=== PATIENT | male | born 1965 | race Caucasian/White ===

== ENCOUNTER 2019-11-13 10:46 | Emergency (ER) | payer OTHER, MEDICAID, SELFPAY ==
[2019-11-13 11:01] VITALS: BP 109/73; PULSE 69; RESP 16; O2SAT 97; BMI 23.5
--- NOTE | 2019-11-13 11:13 | DI.RAD.S_ITS ---
PROCEDURE: XR ANKLE RT MIN 3V INDICATIONS: R ankle and knee pain, planted foot and twisted TECHNIQUE: 3 views of the ankle were acquired. COMPARISON: [facility], CR, XR KNEE RT 3V, 11/13/2019, 11:39. FINDINGS: Bones: No displaced fractures or dislocations. Ankle mortise is normally aligned. No suspicious bony lesions. Soft tissues: No tibiotalar joint effusion. There may be mild soft tissue swelling about the lateral malleolus. IMPRESSION: No acute osseous abnormality of the right ankle. Dictated by: Frankie Velasquez M.D. on 11/13/2019 at 11:18 Approved by: Frankie Velasquez M.D. on 11/13/2019 at 11:21
--- NOTE | 2019-11-13 11:13 | DI.RAD.S_ITS ---
PROCEDURE: XR KNEE RT 3V INDICATIONS: R ankle and knee pain, planted foot and twisted TECHNIQUE: 3 views of the knee were acquired. COMPARISON: None. FINDINGS: Bones: No fractures or dislocations. No suspicious bony lesions. Soft tissues: Moderate joint effusion. No suspicious soft tissue calcifications. IMPRESSION: Moderate effusion. No visualized acute fracture or dislocation. However, if clinical concern and/or pain persist, short interval imaging followup in 7-10 days is recommended, as occult injury cannot be definitively excluded. Dictated by: Mikki Trejo M.D. on 11/13/2019 at 12:00 Approved by: Mikki Trejo M.D. on 11/13/2019 at 12:01
--- NOTE | 2019-11-13 11:43 | DI.RAD.S_ITS ---
PROCEDURE: XR FOOT RT MIN 3V INDICATIONS: trauma TECHNIQUE: 3 views of the foot were acquired. COMPARISON: [facility], , FOOT 3V LEFT, 11/17/2017, 13:05. FINDINGS: Bones: There is a nondisplaced fifth metatarsal base fracture. Soft tissues: No tibiotalar joint effusion. Achilles tendon appears normal. IMPRESSION: Nondisplaced fifth metatarsal base fracture. Dictated by: Mikki Trejo M.D. on 11/13/2019 at 11:59 Approved by: Mikki Trejo M.D. on 11/13/2019 at 12:00
[2019-11-13 13:00] VITALS: BP 117/78; PULSE 72; RESP 18; O2SAT 99
[2019-11-13] MEDS: IBUPROFEN 400 MG TABLET PO (14:23)
[2019-11-13 14:30] VITALS: BP 108/70; PULSE 60; RESP 17; O2SAT 100
[2019-11-13 15:00] VITALS: BP 125/79; PULSE 67; RESP 18; O2SAT 99
--- NOTE | 2019-11-13 15:32 | PC.NURSE ---
araceli wrap to rt knee.
--- NOTE | 2019-11-14 02:25 | ED_ITS ---
HPI - Extremity Injury (Lower) <KONSTANTIN Xiong - Last Filed: 11/14/19 02:39> General Chief Complaint: Extremity Injury, Lower Stated Complaint: twisted ankle, right foot, knee pain Time Seen by Provider: 11/13/19 11:12 Source: patient Mode of arrival: Wheelchair Limitations: no limitations History of Present Illness HPI Narrative: This is a 54-year-old male, nonsmoker, who presents to ED with chief complain of right lateral foot pain, lateral ankle pain, medial knee discomfort. Patient states he possibly inverted his right foot while trying to turn his body during ambulation yesterday with loud popping noise but did not seek evaluation until today since he lives in [facility]. Patient reports gradually worsening pain since the injury. Patient has history of meniscus surgery in right knee about 7 years ago. Patient reports swelling and discoloration on left lateral foot and ankle, increasing discomfort with weight bearing and movement on his right foot. Related Data Allergies Allergy/AdvReac Type Severity Reaction Status Date / Time No Known Drug Allergies Allergy Unknown Unverified 01/26/18 11:59 OPIOIDS AdvReac Unknown MAKES HIM Uncoded 01/26/18 11:59 FEEL BAD Review of Systems <KONSTANTIN Xiong - Last Filed: 11/14/19 02:39> Review of Systems Narrative: General: Denies fever, chills, fatigue, malaise, sweats. HEENT: Denies sinus pain, ear pain, sore throat, difficulty swallowing, dizziness. Respiratory: Denies dyspnea, cough, wheezing, hemoptysis, sputum. Cardiovascular: Denies chest pain, palpitations, orthopnea, edema. Gastrointestinal: Denies nausea, vomiting, abdominal pain, diarrhea, constipation, melena. : Denies dysuria, frequency, incontinence, hematuria, urinary retention. Musculoskeletal: See HPI Skin: Denies rash, skin lesions, or other. Neurologic: Denies weakness, headache, numbness, change in speech, confusion, seizures, incoordination. Psychiatric: No concerning psychosocial issues. 12-point review of systems is negative except for those stated above. Patient History <KONSTANTIN Xiong - Last Filed: 11/14/19 02:39> Social History Smoking Status: Never smoker Smoking Status: Never smoker Substance Use Type: does not use Exam <Jadiel Rodrigez-KONSTANTIN Gill - Last Filed: 11/14/19 02:39> Narrative Exam Narrative: General appearance: well developed, well nourished, in no acute distress. Head: normocephalic, atraumatic, no scalp lesions, non-tender. ENT: Hearing grossly intact. Nose without bleeding, purulent discharge, septal hematoma or deviation. Mucous membrane moist, no mucosal lesion. Throat without erythema, tonsillar hypertrophy or exudate. Uvula in midline, airway patent. Neck/Thyroid: neck supple, full range of motion, no visible masses or meningeal signs. No JVD, non-tender without lymphadenopathy. Skin: no suspicious rashes, lesions over visible areas. Warm and dry and appropriate color for ethnicity. Heart: no clubbing, no cyanosis, no edema. S1 and S2 normal. RRR w/o murmurs, clicks, or bruits. Lungs: Breathing even and unlabored. No stridor. No accessory muscles used. Able to speak in full sentences. Chest: normal shape and expansion. Abdomen: non-obese, non-distended. Neurologic: alert and oriented. Cognitive exam, [employer] and PNS grossly intact on informal exam. Psych: good eye contact, normal affect. Initial Vital Signs Initial Vital Signs: Vital Signs Pulse Rate 69 11/13/19 11:01 Respiratory Rate 16 11/13/19 11:01 Blood Pressure 109/73 11/13/19 11:01 Pulse Oximetry 97 11/13/19 11:01 Extrem Right lower extremity: knee Details: normal to inspection, tenderness Location: of the medial joint line, normal ROM and knee ligament exam normal; no swelling, no ecchymosis, no crepitus, no deformity and no unusual warmth, lower leg Details: normal to inspection; no tenderness, ankle Details: tenderness, swelling, normal ROM (But with discomfort) and ecchymosis (Mild lateral malleolar); no unusual warmth and foot Details: normal capillary refill, tenderness Location: of the dorsal foot, of the lateral foot and of the base of the 5th metatarsal, edema, ecchymosis (Dorsal aspect lateral metatarsal), vascular exam Details: dorsalis pedis pulse present and normal capillary refill, tendon exam Details: active flexion normal (But with discomfort) and active extension normal (But with discomfort) and motor-sensory exam Details: light- touch normal; no laceration and no crepitus <Ferny Harris MD - Last Filed: 11/15/19 21:21> Initial Vital Signs Initial Vital Signs: Vital Signs Pulse Rate 69 11/13/19 11:01 Respiratory Rate 16 11/13/19 11:01 Blood Pressure 109/73 11/13/19 11:01 Pulse Oximetry 97 11/13/19 11:01 Procedures <KONSTANTIN Xiong - Last Filed: 11/14/19 02:39> Orthopedic Splinting/Casting Injury #1: Side: right Lower Extremity Injury Location: foot Lower Extremity Immobilizer: posterior splint and Jay wrap (Knee) Other Orthopedic Equipment: crutches Post splinting neuro exam: intact Post splinting vascular exam: intact Placed by: Nursing Scores <KONSTANTIN Xiong - Last Filed: 11/14/19 02:39> GCS Radha coma scale eye opening: Spontaneous Radha coma scale verbal response: Orientated Radha coma scale motor response: Obey commands Radha coma scale total score: 15 Course <KONSTANTIN Xiong - Last Filed: 11/14/19 02:39> Orders Ordered: Discontinued Medications Acetaminophen (Tylenol) 650 mg PO NOW ONE Stop: 11/13/19 13:08 Last Admin: 11/13/19 14:26 Dose: Not Given Documented by: SALOME Ibuprofen (Advil) 400 mg PO NOW ONE Stop: 11/13/19 13:08 Last Admin: 11/13/19 14:23 Dose: 400 mg Documented by: SALOME <Ferny Harris MD - Last Filed: 11/15/19 21:21> Orders Ordered: Discontinued Medications Acetaminophen (Tylenol) 650 mg PO NOW ONE Stop: 11/13/19 13:08 Last Admin: 11/13/19 14:26 Dose: Not Given Documented by: SALOME Ibuprofen (Advil) 400 mg PO NOW ONE Stop: 11/13/19 13:08 Last Admin: 11/13/19 14:23 Dose: 400 mg Documented by: SALOME MDM - Extremity Injury (Lower) <KONSTANTIN Xiong - Last Filed: 11/14/19 02:39> Differential Diagnosis Differential diagnosis: Likely ankle sprain and strain, acute internal derangement of knee, ankle fracture and other (Foot fracture, foot sprain) Medical Records Attestation: I reviewed the patient's medical records. Imaging Data XR-Foot R: Radiologist's Impression: [address] [address] XRay Report Signed Patient: Silvino Mackey [facility]#: [id number] : 1965Acct:[id number] Age/Sex: 54 / MDate of Service: 11/13/19 Loc: ED Accession Number: [id number] Procedure: XR foot RT min 3V Ordering Provider: Ferny Harris MD PROCEDURE: XR FOOT RT MIN 3V INDICATIONS: trauma TECHNIQUE: 3 views of the foot were acquired. COMPARISON: [facility], FOOT 3V LEFT, 11/17/2017, 13:05. FINDINGS: Bones: There is a nondisplaced fifth metatarsal base fracture. Soft tissues: No tibiotalar joint effusion. Achilles tendon appears normal. IMPRESSION: Nondisplaced fifth metatarsal base fracture. Dictated by: Mikki Trejo M.D. on 11/13/2019 at 11:59 Approved by: Mikki Trejo M.D. on 11/13/2019 at 12:00 XR-Ankle R: Radiologist's Impression: [address] [address] XRay Report Signed Patient: Silvino Mackey [facility]#: [id number] : 1965Acct:[id number] Age/Sex: 54 / MDate of Service: 11/13/19 Loc: ED Accession Number: [id number] Procedure: XR ankle RT min 3V Ordering Provider: Jadiel Alfredo PROCEDURE: XR ANKLE RT MIN 3V INDICATIONS: R ankle and knee pain, planted foot and twisted TECHNIQUE: 3 views of the ankle were acquired. COMPARISON: [facility], XR KNEE RT 3V, 11/13/2019, 11:39. FINDINGS: Bones: No displaced fractures or dislocations. Ankle mortise is normally aligned. No suspicious bony lesions. Soft tissues: No tibiotalar joint effusion. There may be mild soft tissue swelling about the lateral malleolus. IMPRESSION: No acute osseous abnormality of the right ankle. Dictated by: Frankie Velasquez M.D. on 11/13/2019 at 11:18 Approved by: Frankie Velasquez M.D. on 11/13/2019 at 11:21 XR-Knee Rt: Radiologist's Impression: [address] [address] XRay Report Signed Patient: Silvino Mackey [facility]#: [id number] : 1965Acct:[id number] Age/Sex: 54 / MDate of Service: 11/13/19 Loc: ED Accession Number: [id number] Procedure: XR knee RT 3V Ordering Provider: Jadiel Alfredo PROCEDURE: XR KNEE RT 3V INDICATIONS: R ankle and knee pain, planted foot and twisted TECHNIQUE: 3 views of the knee were acquired. COMPARISON: None. FINDINGS: Bones: No fractures or dislocations. No suspicious bony lesions. Soft tissues: Moderate joint effusion. No suspicious soft tissue calcifications. IMPRESSION: Moderate effusion. No visualized acute fracture or dislocation. However, if clinical concern and/or pain persist, short interval imaging followup in 7-10 days is recommended, as occult injury cannot be definitively excluded. Dictated by: Mikki Trejo M.D. on 11/13/2019 at 12:00 Approved by: Mikki Trejo M.D. on 11/13/2019 at 12:01 [facility] Narrative Medical decision making narrative: X-ray test on right foot showed a nondisplaced 5th metatarsal base fracture with intact Achilles tendon. Right ankle and knee x-ray tests did not show acute findings such as fractures or dislocation. Joint effusion on right knee. Right lower limb sensation is intact, mild swelling and slight ecchymosis to right lateral metatarsal. Patient is able to move right ankle, toes but increased pain with weight-bearing or movements. Affected lower leg was splinted with Ortho Glass splint in posterior leg and crutches provided with teachings for nonweightbearing. Jay wrap was applied on right knee for comfort. Advised RICE therapy and to use [id number] Tylenol and or Motrin as needed for discomfort. [facility] contact number provided to follow up and return precautions were discussed with the patient. Patient verbalized the understanding and agrees with treatment plan. Discharge Plan Departure Patient Disposition: Home Clinical Impression: Ankle sprain and strain Right knee sprain Qualifiers: Encounter type: initial encounter Involved ligament of knee: medial collateral ligament Qualified Code(s): S83.411A - Sprain of medial collateral ligament of right knee, initial encounter Fracture of fifth metatarsal bone of right foot Qualifiers: Encounter type: initial encounter Fracture type: closed Fracture alignment: nondisplaced Qualified Code(s): S92.354A - Nondisplaced fracture of fifth metatarsal bone, right foot, initial encounter for closed fracture Discharge Date/Time: 11/13/19 16:03 Instructions: DI for Foot Fracture, DI for Knee Sprain, DI for Ankle Sprain Activity Restrictions/Additional Instructions: You have been diagnosed with [according to x-ray test today, nondisplaced 5th metatarsal base fracture, sprain on lateral ankle and medial knee]. What to do: *Take your medications as directed. Please take [id number] Tylenol and or Motrin as needed for discomfort. Tylenol 650 mg 4 times a day as needed and ibuprofen 400-600 mg 3 times a day with food. Please use RICE therapy with rest, ice for next 24-48 hrs, splint and elevation for pain and swelling. Please keep splint on all time and use crutches for nonweightbearing. Jay wrap on her knee for support *Follow up with your primary care provider/orthopedist in 2-3 days, call for an appointment. Let them know you were seen in the ED and that we asked you to be seen in follow up. *Return to ED if you have any new, worsening, or concerning symptoms, such as [increasing pain, fever, chest pain, breathing difficulty, tingling, numbness, weakness to affected limb or any acute concerns]. Referrals: [facility] [Provider Group] Jay Young ARNP [Primary Care Provider] -
== END 2019-11-13 16:03 | disposition home or self-care (01) ==
PROVIDERS: Emergency Provider Nurse Practitioner Family; Family Provider Registered Nurse; PCP Registered Nurse
DX: S93.401A Sprain of unspecified ligament of right ankle, initial encounter (principal); S96.911A Strain of unspecified muscle and tendon at ankle and foot level, right foot, initial encounter; S83.411A Sprain of medial collateral ligament of right knee, initial encounter; S92.354A Nondisplaced fracture of fifth metatarsal bone, right foot, initial encounter for closed fracture
CPT/HCPCS: 73562; 73610; 73630; 99283; 99284

== ENCOUNTER 2021-04-10 03:05 | Observation (INO) | payer OTHER, MEDICAID, SELFPAY ==
[2021-04-10] VITALS (27 sets, daily range): BP systolic 101–140; BP diastolic 69–86; PULSE 60–98; RESP 14–22; TEMP 35.7–37.2; O2SAT 90–100; BMI 25.0
--- NOTE | 2021-04-10 | DI.RAD.S_ITS ---
PROCEDURE: XR CHEST 1V INDICATIONS: NG TUBE PLACEMENT TECHNIQUE: One view of the chest was acquired. COMPARISON: None. FINDINGS: Surgical changes and devices: Tubing is noted overlying the region of the esophagus with distal tip extending below the left hemidiaphragm. Side port overlies the region of the gastroesophageal junction. Lungs and pleura: Visualized portions of the lung bases are clear. Mediastinum: Mediastinal contours appear normal. Heart size is normal. Bones and chest wall: No suspicious bony lesions. Overlying soft tissues appear unremarkable. IMPRESSION: NG tube projecting below the left hemidiaphragm as above. Given location of side port, approximately 3 cm advancement would improve placement. The above findings are concordant with preliminary report. Dictated by: Mikki Trejo M.D. on 04/10/2021 at 8:34 Approved by: Mikki Trejo M.D. on 04/10/2021 at 8:36
--- NOTE | 2021-04-10 03:22 | DI.CT.S_ITS ---
PROCEDURE: CT ABDOMEN PELVIS W CON INDICATIONS: abdominal pain TECHNIQUE: After the administration of intravenous contrast, axial sections acquired from the lung bases to the pubic symphysis. Coronal and sagittal reformats were performed. For radiation dose reduction, the following was used: automated exposure control, adjustment of mA and/or kV according to patient size. COMPARISON: None. FINDINGS: ABDOMEN: Lung bases: Dependent bilateral mild scattered atelectasis in the visualized lung bases. Heart: No significant findings. Liver: Within the left hepatic lobe, 12.1 cm partially enhancing lesion statistically represents hemangioma. This could be confirmed with ultrasound evaluation/surveillance. Small right hepatic cysts. Gallbladder: Negative Bile ducts: Normal. Pancreas: Normal. Spleen: Normal. Adrenals: Normal. Kidneys and Ureters: Normal. Stomach and duodenum: Distended stomach Bowel: Distended small bowel loops with scattered air-fluid levels. Distal small bowel loops remain decompressed. The colon is relatively decompressed. Incidentally noted scattered colonic diverticula. The rectum is unremarkable. Normal appendix. There is stool and gas within the rectal vault at this time. Other: No free fluid or air. Abdominal nodes: Normal. Aorta and IVC: Normal in size. Ventral wall: Small fat containing periumbilical hernia. PELVIS: Bladder: Normal. Inguinal region: No hernia. Pelvic nodes: Normal. Bones: Spondylytic changes and facet arthropathy. No vertebral body compression fracture. IMPRESSION: Small-bowel obstruction, including distended stomach and proximal/mid small bowel. Findings concordant with preliminary study interpretation. Additional chronic and incidental findings as above. Dictated by: Louis Segundo M.D. on 04/10/2021 at 7:51 Approved by: Louis Segundo M.D. on 04/10/2021 at 7:56
[2021-04-10 03:37] LABS: Add Manual Diff / Slide Review NO; Basophils Absolute Auto 0 /uL (0-100); Basophils Percent Auto 0.5 % (0-2); Eosinophils Absolute Auto 200 /uL (0-450); Eosinophils Percent Auto 1.9 % (2-4); Hematocrit 43.9 % (41-53); Hemoglobin 15.2 g/dL (13.5-17.5); Lymphocytes Absolute Auto 800 /uL (1100-4500); Lymphocytes Percent Auto 9.9 % (25-40); Mean Corpuscular HGB Conc 34.5 % (30-36); Mean Corpuscular Hemoglobin 31.5 PG (26-34); Mean Corpuscular Volume 91.2 fL (80-100); Monocytes Absolute Auto 800 /uL (0-900); Monocytes Percent Auto 9.2 % (3-14); Neutrophils Absolute Auto 6400 /uL (1500-7000); Neutrophils Percent Auto 78.5 % (50-75); Platelet Count 155 X10^3/uL (150-400); Red Blood Cell Count 4.81 X10^6/uL (4.5-5.9); White Blood Cell Count 8.1 X10^3/uL (4.5-11.0)
[2021-04-10] MEDS: SODIUM CHLORIDE 0.9% 1,000 ML 150 ML IV ×3 (03:37→21:17)
[2021-04-10] MEDS: ONDANSETRON 4 MG/2 ML INJ IV (03:37)
[2021-04-10] MEDS: HYDROMORPHONE 0.5 MG INJ IV ×6 (03:37→21:31)
[2021-04-10 03:50] LABS: Lactate (Lactic Acid) 0.9 mmol/L (0.7-2.1)
[2021-04-10 03:52] LABS: Alanine Aminotransferase 19 IU/L (<50); Albumin 4.2 g/dL (3.5-5.0); Albumin Globulin Ratio 1.6 (1.0-2.8); Alkaline Phosphatase 44 U/L (38-126); Aspartate Aminotransferase 51 IU/L (17-59); BUN Creatinine Ratio 19.5 (6-22); Bilirubin Total 0.6 mg/dL (0.2-1.3); Blood Urea Nitrogen 17 mg/dL (9-20); Calcium 10.4 mg/dL (8.4-10.2); Carbon Dioxide 26 mmol/L (22-32); Chloride 105 mmol/L (98-107); Estimated Glomerular Filt Rate > 60.0 mL/min (>60); Globulin 2.7 g/dL (1.7-4.1); Glucose 118 mg/dL (70-100); HEMOLYSIS 27 (0-50); Lipase 87 U/L (23-300); Magnesium 1.9 mg/dL (1.6-2.3); Potassium 3.4 mmol/L (3.4-5.1); Sodium 138 mmol/L (137-145); Total Protein 6.9 g/dL (6.3-8.2)
[2021-04-10 04:07] LABS: Troponin I < 0.012 ng/mL (0.01-0.034)
--- NOTE | 2021-04-10 04:49 | ED.ABDPAIN ---
HPI - Abdominal Pain <Merly Stringer MD - Last Filed: 04/11/21 05:19> General Chief Complaint: Abdominal Pain Stated Complaint: Diffuse Abd Pain Time Seen by Provider: 04/10/21 03:05 Source: patient and EMS Mode of arrival: EMS History of Present Illness HPI narrative: 55-year-old otherwise healthy gentleman who takes no prescription medications presents with the acute onset of abdominal pain starting about 130 this afternoon. He notes that over the years he has had some minor periumbilical pain that he always presumed was an umbilical hernia. Today he complains of increasing bloating and overall pain. Did try to go to bed but the pain awoke him from sleep with increased severity. The pain was severe enough that he was having near syncopal feelings. He notes that he had a small bowel movement this evening that did not influences pain. He describes the pain as waves of cramping severe pain over his lower abdomen going from right to left. He does not describe chest pain, orthopnea, dyspnea, fevers, cough, chills, dysuria. He has no flank pain. Related Data Home Medications Medication Instructions Recorded Confirmed No Known Home Medications 04/10/21 04/10/21 Allergies Allergy/AdvReac Type Severity Reaction Status Date / Time Opioids - Morphine Analogues AdvReac Unknown makes him Verified 04/10/21 11:36 feel bad Review of Systems <Merly Stringer MD - Last Filed: 04/11/21 05:19> Review of Systems Narrative: Remainder of complete review of systems is otherwise unremarkable except for that included in the HPI. Patient History <Merly Stringer MD - Last Filed: 04/11/21 05:19> Social History Smoking Status: Never smoker Smoking Status: Never smoker alcohol intake frequency: a few times a month Substance Use Type: does not use Exam <Merly Stringer MD - Last Filed: 04/11/21 05:19> Narrative Exam Narrative: General: Healthy appearing, in significant distress. Able to give a complete and coherent history. Well-nourished well-developed HEENT: Moist mucous membranes, normal sclera with reactive pupils, Neck: No JVD, supple Respiratory: Lungs are clear to auscultation, no wheezing no rales no rhonchi. Full and symmetrical air movement but 3-4 word sentences only secondary to pain Cardiac: Regular rate and rhythm no murmurs no bruits Abdomen: Guarding over the entire abdomen with significant tenderness and hypoactive bowel tones, mild rebound signs or developing, no flank pain Skin: Warm and dry, no rashes Neurologic: Grossly neurologically intact with no obvious asymmetries or abnormalities Extremities: No trauma, well perfused Psych: Cooperative, appropriate insight and affect Initial Vital Signs Initial Vital Signs: Vital Signs Temperature 98 F 04/10/21 03:00 Pulse Rate 66 04/10/21 03:00 Respiratory Rate 20 04/10/21 03:00 Blood Pressure 110/74 04/10/21 03:00 Pulse Oximetry 96 04/10/21 03:00 <Alana Shankar DO - Last Filed: 04/10/21 18:44> Initial Vital Signs Initial Vital Signs: Vital Signs Temperature 98 F 04/10/21 03:00 Pulse Rate 66 04/10/21 03:00 Respiratory Rate 20 04/10/21 03:00 Blood Pressure 110/74 04/10/21 03:00 Pulse Oximetry 96 04/10/21 03:00 Course <Merly Stringer MD - Last Filed: 04/11/21 05:19> Orders Ordered: Benzocaine (Benzocaine/Menthol 1 Afsaneh Pkt) 1 each PO Q1HR PRN PRN Reason: Sore Throat Benzocaine/Butamben/Tetracaine HCl (Tetracaine/Benzocaine/Butamben (Cetacaine) Bottle) 1 spray TOP PRN PRN PRN Reason: Sore Throat Cyclobenzaprine HCl (Cyclobenzaprine 10 Mg Tablet) 5 mg PO Q8HR PRN PRN Reason: Muscle Spasm Last Admin: 04/11/21 03:16 Dose: 5 mg Documented by: ISABEL Enoxaparin Sodium (Enoxaparin 40 Mg/0.4 Ml Syringe) 40 mg 0.5 mg/kg (40 mg) SUBCUT DAILY JASMINA Hydromorphone HCl (Hydromorphone 0.5 Mg Inj) 0.5 mg IV Q3H PRN PRN Reason: Pain, Moderate (4-6) Last Admin: 04/10/21 21:31 Dose: 0.5 mg Documented by: Admin: 04/10/21 18:21 Dose: 0.5 mg Documented by: Admin: 04/10/21 14:08 Dose: 0.5 mg Documented by: HUY Sodium Chloride (Normal Saline 0.9%) 1,000 mls @ 150 mls/hr IV CONT [facility] Last Admin: 04/11/21 04:00 Dose: 150 mls/hr Documented by: Infusion: 04/11/21 03:58 Dose: 150 mls/hr Documented by: Admin: 04/10/21 21:17 Dose: 150 mls/hr Documented by: Infusion: 04/10/21 20:51 Dose: 150 mls/hr Documented by: Admin: 04/10/21 14:10 Dose: 150 mls/hr Documented by: HUY Magnesium Oxide (Magnesium Oxide 400 Mg Tablet) 400 mg PO DAILY [facility] Last Admin: 04/11/21 00:11 Dose: 400 mg Documented by: ISABEL Ondansetron HCl (Ondansetron 4 Mg/2 Ml Inj) 4 mg IV Q4HR PRN PRN Reason: Nausea And Vomiting Pantoprazole Sodium (Pantoprazole 40 Mg Vial) 40 mg IV BID [facility] Last Admin: 04/10/21 21:17 Dose: 40 mg Documented by: Admin: 04/10/21 14:13 Dose: 40 mg Documented by: HUY Discontinued Medications Benzocaine/Butamben/Tetracaine HCl (Tetracaine/Benzocaine/Butamben (Cetacaine) Bottle) 1 spray TOP PRN PRN PRN Reason: Sore Throat Last Admin: 04/10/21 11:05 Dose: 1 spray Documented by: Admin: 04/10/21 08:25 Dose: 1 spray Documented by: PORSCHE Hydromorphone HCl (Hydromorphone 0.5 Mg Inj) 0.5 mg IV Q15MIN PRN PRN Reason: Pain, Last Admin: 04/10/21 11:04 Dose: 0.5 mg Documented by: Admin: 04/10/21 08:15 Dose: 0.5 mg Documented by: Admin: 04/10/21 03:37 Dose: 0.5 mg Documented by: SHALOM Hydromorphone HCl (Hydromorphone 1 Mg Inj) 1 mg IV NOW ONE Stop: 04/10/21 05:40 Last Admin: 04/10/21 05:49 Dose: 1 mg Documented by: SHALOM Sodium Chloride (Normal Saline 0.9%) 1,000 mls @ 150 mls/hr IV CONT JAS[facility]A Last Infusion: 04/10/21 05:50 Dose: 0 mls/hr Documented by: Admin: 04/10/21 03:37 Dose: 150 mls/hr Documented by: SHALOM Dextrose/Sodium Chloride (Dextrose 5%-0.9% Ns) 1,000 mls @ 125 mls/hr IV CONT J[facility] Last Admin: 04/10/21 11:40 Dose: Not Given Documented by: HUY Magnesium Oxide (Magnesium Oxide 400 Mg Tablet) 400 mg PO DAILY [facility] Ondansetron HCl (Ondansetron 4 Mg/2 Ml Inj) 4 mg IV NOW ONE Stop: 04/10/21 03:28 Last Admin: 04/10/21 03:37 Dose: 4 mg Documented by: SHALOM Vital Signs Vital signs: Vital Signs - 8 hr 04/10/21 03:00 04/10/21 03:29 04/10/21 03:30 Temperature 98 F Pulse Rate 66 68 62 Respiratory Rate 20 Blood Pressure 110/74 Pulse Oximetry 96 100 100 04/10/21 03:36 04/10/21 03:55 04/10/21 04:00 Temperature Pulse Rate 74 67 70 Respiratory Rate Blood Pressure 110/74 105/70 Pulse Oximetry 97 95 95 04/10/21 04:23 04/10/21 04:30 04/10/21 05:00 Temperature Pulse Rate 71 74 80 Respiratory Rate Blood Pressure 106/69 106/69 114/72 Pulse Oximetry 97 97 96 04/10/21 05:30 04/10/21 06:00 04/10/21 06:30 Temperature Pulse Rate 98 H 81 71 Respiratory Rate Blood Pressure 139/80 117/75 101/72 Pulse Oximetry 99 90 L 91 04/10/21 06:59 04/10/21 07:00 04/10/21 07:01 Temperature Pulse Rate 78 79 Respiratory Rate Blood Pressure 108/75 Pulse Oximetry 95 95 04/10/21 07:30 04/10/21 08:00 04/10/21 08:30 Temperature Pulse Rate 71 60 75 Respiratory Rate Blood Pressure 116/78 113/81 122/85 Pulse Oximetry 94 95 96 04/10/21 09:00 04/10/21 09:30 Temperature Pulse Rate 63 60 Respiratory Rate 22 Blood Pressure 122/74 122/77 Pulse Oximetry 95 95 <Alana Shankar DO - Last Filed: 04/10/21 18:44> Orders Ordered: Benzocaine (Benzocaine/Menthol 1 Afsaneh Pkt) 1 each PO Q1HR PRN PRN Reason: Sore Throat Benzocaine/Butamben/Tetracaine HCl (Tetracaine/Benzocaine/Butamben (Cetacaine) Bottle) 1 spray TOP PRN PRN PRN Reason: Sore Throat Cyclobenzaprine HCl (Cyclobenzaprine 10 Mg Tablet) 5 mg PO Q8HR PRN PRN Reason: Muscle Spasm Last Admin: 04/11/21 03:16 Dose: 5 mg Documented by: ISABEL Enoxaparin Sodium (Enoxaparin 40 Mg/0.4 Ml Syringe) 40 mg 0.5 mg/kg (40 mg) SUBCUT DAILY [facility] Hydromorphone HCl (Hydromorphone 0.5 Mg Inj) 0.5 mg IV Q3H PRN PRN Reason: Pain, Moderate (4-6) Last Admin: 04/10/21 21:31 Dose: 0.5 mg Documented by: Admin: 04/10/21 18:21 Dose: 0.5 mg Documented by: Admin: 04/10/21 14:08 Dose: 0.5 mg Documented by: HUY Sodium Chloride (Normal Saline 0.9%) 1,000 mls @ 150 mls/hr IV CONT [facility] Last Admin: 04/11/21 04:00 Dose: 150 mls/hr Documented by: Infusion: 04/11/21 03:58 Dose: 150 mls/hr Documented by: Admin: 04/10/21 21:17 Dose: 150 mls/hr Documented by: Infusion: 04/10/21 20:51 Dose: 150 mls/hr Documented by: Admin: 04/10/21 14:10 Dose: 150 mls/hr Documented by: HUY Magnesium Oxide (Magnesium Oxide 400 Mg Tablet) 400 mg PO DAILY [facility] Last Admin: 04/11/21 00:11 Dose: 400 mg Documented by: ISABEL Ondansetron HCl (Ondansetron 4 Mg/2 Ml Inj) 4 mg IV Q4HR PRN PRN Reason: Nausea And Vomiting Pantoprazole Sodium (Pantoprazole 40 Mg Vial) 40 mg IV BID [facility] Last Admin: 04/10/21 21:17 Dose: 40 mg Documented by: Admin: 04/10/21 14:13 Dose: 40 mg Documented by: HUY Discontinued Medications Benzocaine/Butamben/Tetracaine HCl (Tetracaine/Benzocaine/Butamben (Cetacaine) Bottle) 1 spray TOP PRN PRN PRN Reason: Sore Throat Last Admin: 04/10/21 11:05 Dose: 1 spray Documented by: Admin: 04/10/21 08:25 Dose: 1 spray Documented by: PORSCHE Hydromorphone HCl (Hydromorphone 0.5 Mg Inj) 0.5 mg IV Q15MIN PRN PRN Reason: Pain, Last Admin: 04/10/21 11:04 Dose: 0.5 mg Documented by: Admin: 04/10/21 08:15 Dose: 0.5 mg Documented by: Admin: 04/10/21 03:37 Dose: 0.5 mg Documented by: SHALOM Hydromorphone HCl (Hydromorphone 1 Mg Inj) 1 mg IV NOW ONE Stop: 04/10/21 05:40 Last Admin: 04/10/21 05:49 Dose: 1 mg Documented by: SHALOM Sodium Chloride (Normal Saline 0.9%) 1,000 mls @ 150 mls/hr IV CONT [facility] Last Infusion: 04/10/21 05:50 Dose: 0 mls/hr Documented by: Admin: 04/10/21 03:37 Dose: 150 mls/hr Documented by: SHALOM Dextrose/Sodium Chloride (Dextrose 5%-0.9% Ns) 1,000 mls @ 125 mls/hr IV CONT [facility] Last Admin: 04/10/21 11:40 Dose: Not Given Documented by: HUY Magnesium Oxide (Magnesium Oxide 400 Mg Tablet) 400 mg PO DAILY [facility] Ondansetron HCl (Ondansetron 4 Mg/2 Ml Inj) 4 mg IV NOW ONE Stop: 04/10/21 03:28 Last Admin: 04/10/21 03:37 Dose: 4 mg Documented by: SHALOM Vital Signs Vital signs: Vital Signs - 8 hr 04/10/21 03:00 04/10/21 03:29 04/10/21 03:30 Temperature 98 F Pulse Rate 66 68 62 Respiratory Rate 20 Blood Pressure 110/74 Pulse Oximetry 96 100 100 04/10/21 03:36 04/10/21 03:55 04/10/21 04:00 Temperature Pulse Rate 74 67 70 Respiratory Rate Blood Pressure 110/74 105/70 Pulse Oximetry 97 95 95 04/10/21 04:23 04/10/21 04:30 04/10/21 05:00 Temperature Pulse Rate 71 74 80 Respiratory Rate Blood Pressure 106/69 106/69 114/72 Pulse Oximetry 97 97 96 04/10/21 05:30 04/10/21 06:00 04/10/21 06:30 Temperature Pulse Rate 98 H 81 71 Respiratory Rate Blood Pressure 139/80 117/75 101/72 Pulse Oximetry 99 90 L 91 04/10/21 06:59 04/10/21 07:00 04/10/21 07:01 Temperature Pulse Rate 78 79 Respiratory Rate Blood Pressure 108/75 Pulse Oximetry 95 95 04/10/21 07:30 04/10/21 08:00 04/10/21 08:30 Temperature Pulse Rate 71 60 75 Respiratory Rate Blood Pressure 116/78 113/81 122/85 Pulse Oximetry 94 95 96 04/10/21 09:00 04/10/21 09:30 Temperature Pulse Rate 63 60 Respiratory Rate 22 Blood Pressure 122/74 122/77 Pulse Oximetry 95 95 MDM - Abdominal Pain <Merly Stringer MD - Last Filed: 04/11/21 05:19> Medical Records Attestation: I reviewed the patient's medical records. Lab Data Attestation: I reviewed the patient's lab results. Result diagrams: 04/10/21 03:25 04/10/21 03:25 Labs: Lab Results 04/10/21 04/10/21 04/10/21 Range/Units 03:25 03:25 03:25 WBC 8.1 (4.5-11.0) X10^3/uL RBC 4.81 (4.5-5.9) X10^6/uL Hgb 15.2 (13.5-17.5) g/dL Hct 43.9 (41-53) % MCV 91.2 (80-100) fL MCH 31.5 (26-34) PG MCHC 34.5 (30-36) % RDW 13.0 (11.6-14.8) % Plt Count 155 (150-400) X10^3/uL Neut % (Auto) 78.5 H (50-75) % Lymph % (Auto) 9.9 L (25-40) % [place] % (Auto) 9.2 (3-14) % Eos % (Auto) 1.9 L (2-4) % Baso % (Auto) 0.5 (0-2) % Neut # (Auto) 6400 (8829-6345) /uL Lymph # (Auto) 800 L (2390-7894) /uL [place] # (Auto) 800 (0-900) /uL Eos # (Auto) 200 (0-450) /uL Baso # (Auto) 0 (0-100) /uL Sodium 138 (137-145) mmol/L Potassium 3.4 (3.4-5.1) mmol/L Chloride 105 (98-107) mmol/L Carbon Dioxide 26 (22-32) mmol/L BUN 17 (9-20) mg/dL Creatinine 0.87 (0.66-1.25) mg/dL Estimated GFR > 60.0 (>60) mL/min BUN/Creatinine Ratio 19.5 (6-22) Glucose 118 H (70-100) mg/dL Lactate 0.9 (0.7-2.1) mmol/L Calcium 10.4 H (8.4-10.2) mg/dL Magnesium 1.9 (1.6-2.3) mg/dL Total Bilirubin 0.6 (0.2-1.3) mg/dL AST 51 (17-59) IU/L ALT 19 (<50) IU/L Alkaline Phosphatase 44 (38-126) U/L Troponin I < 0.012 (0.01-0.034) ng/mL Total Protein 6.9 (6.3-8.2) g/dL Albumin 4.2 (3.5-5.0) g/dL Globulin 2.7 (1.7-4.1) g/dL Albumin/Globulin Ratio 1.6 (1.0-2.8) Lipase 87 (23-300) U/L SARS-CoV-2 (PCR) (Negative) 04/10/21 Range/Units 03:45 WBC (4.5-11.0) X10^3/uL RBC (4.5-5.9) X10^6/uL Hgb (13.5-17.5) g/dL Hct (41-53) % MCV (80-100) fL MCH (26-34) PG MCHC (30-36) % RDW (11.6-14.8) % Plt Count (150-400) X10^3/uL Neut % (Auto) (50-75) % Lymph % (Auto) (25-40) % [place] % (Auto) (3-14) % Eos % (Auto) (2-4) % Baso % (Auto) (0-2) % Neut # (Auto) (6684-7222) /uL Lymph # (Auto) (6869-4524) /uL [place] # (Auto) (0-900) /uL Eos # (Auto) (0-450) /uL Baso # (Auto) (0-100) /uL Sodium (137-145) mmol/L Potassium (3.4-5.1) mmol/L Chloride (98-107) mmol/L Carbon Dioxide (22-32) mmol/L BUN (9-20) mg/dL Creatinine (0.66-1.25) mg/dL Estimated GFR (>60) mL/min BUN/Creatinine Ratio (6-22) Glucose (70-100) mg/dL Lactate (0.7-2.1) mmol/L Calcium (8.4-10.2) mg/dL Magnesium (1.6-2.3) mg/dL Total Bilirubin (0.2-1.3) mg/dL AST (17-59) IU/L ALT (<50) IU/L Alkaline Phosphatase (38-126) U/L Troponin I (0.01-0.034) ng/mL Total Protein (6.3-8.2) g/dL Albumin (3.5-5.0) g/dL Globulin (1.7-4.1) g/dL Albumin/Globulin Ratio (1.0-2.8) Lipase (23-300) U/L SARS-CoV-2 (PCR) Negative (Negative) Imaging Data CT scan - abdomen/pelvis: Radiologist's Impression: Findings suggestive partial small-bowel obstruction with distended stomach and proximal mid and small-bowel as detailed this could be mechanical or functional and related to enteritis. Small-bowel follow-through could be considered to further evaluate. No evidence for perforation or free fluid. Appendix is present and normal. MDM Narrative Medical decision making narrative: Otherwise healthy 55-year-old gentleman with no prior abdominal surgeries presents with severe abdominal pain CT scan reveals is a small-bowel obstruction with significant gastric distention. He complains of significant and longstanding periumbilical pain. Close examination of the CT suggests small umbilical hernia with some mild fat stranding but this does not appear to be because of his small-bowel obstruction. NG tube will be placed. Patient will need hospital admission. Will begin looking for bed availability. He is COVID negative. <Alana Shankar, DO - Last Filed: 04/10/21 18:44> Lab Data Labs: Lab Results 04/10/21 04/10/21 04/10/21 Range/Units 03:25 03:25 03:25 WBC 8.1 (4.5-11.0) X10^3/uL RBC 4.81 (4.5-5.9) X10^6/uL Hgb 15.2 (13.5-17.5) g/dL Hct 43.9 (41-53) % MCV 91.2 (80-100) fL MCH 31.5 (26-34) PG MCHC 34.5 (30-36) % RDW 13.0 (11.6-14.8) % Plt Count 155 (150-400) X10^3/uL Neut % (Auto) 78.5 H (50-75) % Lymph % (Auto) 9.9 L (25-40) % [place] % (Auto) 9.2 (3-14) % Eos % (Auto) 1.9 L (2-4) % Baso % (Auto) 0.5 (0-2) % Neut # (Auto) 6400 (9204-8334) /uL Lymph # (Auto) 800 L (1576-6729) /uL [place] # (Auto) 800 (0-900) /uL Eos # (Auto) 200 (0-450) /uL Baso # (Auto) 0 (0-100) /uL Sodium 138 (137-145) mmol/L Potassium 3.4 (3.4-5.1) mmol/L Chloride 105 (98-107) mmol/L Carbon Dioxide 26 (22-32) mmol/L BUN 17 (9-20) mg/dL Creatinine 0.87 (0.66-1.25) mg/dL Estimated GFR > 60.0 (>60) mL/min BUN/Creatinine Ratio 19.5 (6-22) Glucose 118 H (70-100) mg/dL Lactate 0.9 (0.7-2.1) mmol/L Calcium 10.4 H (8.4-10.2) mg/dL Magnesium 1.9 (1.6-2.3) mg/dL Total Bilirubin 0.6 (0.2-1.3) mg/dL AST 51 (17-59) IU/L ALT 19 (<50) IU/L Alkaline Phosphatase 44 (38-126) U/L Troponin I < 0.012 (0.01-0.034) ng/mL Total Protein 6.9 (6.3-8.2) g/dL Albumin 4.2 (3.5-5.0) g/dL Globulin 2.7 (1.7-4.1) g/dL Albumin/Globulin Ratio 1.6 (1.0-2.8) Lipase 87 (23-300) U/L SARS-CoV-2 (PCR) (Negative) 04/10/21 Range/Units 03:45 WBC (4.5-11.0) X10^3/uL RBC (4.5-5.9) X10^6/uL Hgb (13.5-17.5) g/dL Hct (41-53) % MCV (80-100) fL MCH (26-34) PG MCHC (30-36) % RDW (11.6-14.8) % Plt Count (150-400) X10^3/uL Neut % (Auto) (50-75) % Lymph % (Auto) (25-40) % [place] % (Auto) (3-14) % Eos % (Auto) (2-4) % Baso % (Auto) (0-2) % Neut # (Auto) (1970-1602) /uL Lymph # (Auto) (6614-6862) /uL [place] # (Auto) (0-900) /uL Eos # (Auto) (0-450) /uL Baso # (Auto) (0-100) /uL Sodium (137-145) mmol/L Potassium (3.4-5.1) mmol/L Chloride (98-107) mmol/L Carbon Dioxide (22-32) mmol/L BUN (9-20) mg/dL Creatinine (0.66-1.25) mg/dL Estimated GFR (>60) mL/min BUN/Creatinine Ratio (6-22) Glucose (70-100) mg/dL Lactate (0.7-2.1) mmol/L Calcium (8.4-10.2) mg/dL Magnesium (1.6-2.3) mg/dL Total Bilirubin (0.2-1.3) mg/dL AST (17-59) IU/L ALT (<50) IU/L Alkaline Phosphatase (38-126) U/L Troponin I (0.01-0.034) ng/mL Total Protein (6.3-8.2) g/dL Albumin (3.5-5.0) g/dL Globulin (1.7-4.1) g/dL Albumin/Globulin Ratio (1.0-2.8) Lipase (23-300) U/L SARS-CoV-2 (PCR) Negative (Negative) MDM Narrative Medical decision making narrative: I have seen evaluated patient myself 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 Patient has an NG tube placed abdomen is soft. He is having a difficult time talking because and she is so uncomfortable. [id number]-Dr. Siu actually called the emergency department recommend Gastrografin challenge. Happy to admit. Discharge Plan Departure Patient Disposition: Admitted as Observation Clinical Impression: Small bowel obstruction Admit Date/Time: 04/10/21 10:38 Admit Provider: Keisha Siu
[2021-04-10 04:51] LABS: COVID19 - ADMIT (NP swab/PCR) Negative (Negative)
[2021-04-10] MEDS: HYDROMORPHONE 1 MG INJ IV (05:49)
--- NOTE | 2021-04-10 05:51 | PC.NURSE ---
I inserted an 18 dominican ng tube via right nare,I was told prior he had a strong gag reflex,he had approx 400 ml coffee ground emesis during insertion,he was cleaned and repostioned after,ng is draing brown drainage on low suction now,tube placement was verified by drainage and x-ray.He said his abdomen felt better but his throat hurt from the tube and he was medicated with relief for that.
[2021-04-10] MEDS: TETRACAINE/BENZOCAINE/BUTAMBEN (CETACAINE) BOTTLE 1 SPRAY TOP ×2 (08:25→11:05)
--- NOTE | 2021-04-10 09:41 | DI.RAD.S_ITS ---
PROCEDURE: XR GASTROGRAFIN CHALLENGE COMPARISON: None. INDICATIONS: SBO FINDINGS: Water-soluble oral contrast was administered through esophagogastric tube into the gastric lumen, and from point of administration 4 hours earlier the current study shows oral contrast has transit through the entirety of the small bowel and into the colon, including the transverse colon. IMPRESSION: No sign of small bowel obstruction. Oral contrast has transited through the entire small bowel into the colon, and the small bowel does not appear dilated. Dictated by: Nikolai Pineda M.D. on 04/10/2021 at 14:35 Approved by: Nikolai Pineda M.D. on 04/10/2021 at 14:36
--- NOTE | 2021-04-10 09:43 | PC.NURSE ---
Teofilo emt came over to collect blanket that patient traveled to hospital with. Informed her that the blankets are soiled. blankets were bagged together for her.
--- NOTE | 2021-04-10 11:29 | PC.NURSE ---
ngt placed on overnight houseperson, drained coffee ground emesis
--- NOTE | 2021-04-10 12:50 | P.HP_ITS ---
History of Present Illness History of Present Illness Date Patient Seen: 04/10/21 Time Patient Seen: 12:50 Chief complaint: Diffuse Abd Pain Narrative: This is a 55 yo man with no significant medical history who began having abdominal pain and bloating last night right after dinner. He started feeling dizzy, and so he called EMS and was brought to the ER. He had a CT scan which showed a possible SBO with a mid small bowel transition point. He was started on IV fluids and an NGT was placed. A gastrografin challenge was ordered. He has a follow up xray pending at 2PM. He says he feels better since the NGT relieved some of his bloating, and he got some pain meds. Currently his NGT is clamped and he denies nausea. He has some periumbilical pain, which appears to be due to a small umbilical hernia which was seen on CT. He has never had a colonoscopy. He denies any known family history of colon or bowel cancers or abnormalities. ROS: Reports periumbilical pain, denies nausea. Last reported bowel movement was at 1:00 a.m. Thirteen system review is otherwise negative other than as mentioned below and in HPI. PE: GENERAL: Alert, mild distress due to NG tube. Appears stated age. Writing responses on paper because his throat hurts. Vital signs noted. HENT: Normocephalic, atraumatic. Hearing intact. Hoarse voice due to NG tube. EYES: Conjunctiva pink, sclera white, no periorbital swelling. CARDIOVASCULAR: Regular rate. No pedal edema. RESPIRATORY: Non-tachypneic, breathing comfortably on room air. GASTROINTESTINAL: Abdomen soft, mildly distended, focally tender to palpation superior to the umbilicus, small palpable mass consistent with supraumbilical hernia GENITALURINARY: No flank tenderness. MUSCULOSKELETAL: Equal tone and mass bilaterally. SKIN: Warm, dry, soft, appropriate color for ethnicity. No other lesions, r ashes, or wounds. NEURO: Alert and Oriented X 3. No gross sensory deficits, or cognitive issues. PSYCH: Appropriate affect and mood. Patient History Family & Social History Social History: Prior Living Arrangements House Safety & Behavioral: Feels Safe in Current Yes Environment Tobacco & Substance use: Smoking Status Never smoker alcohol intake frequency a few times a month Substance Use Type does not use Meds Home Medications and Allergies Home Medications Medication Instructions Recorded Confirmed Type No Known Home Medications 04/10/21 04/10/21 History Allergies Allergy/AdvReac Type Severity Reaction Status Date / Time Opioids - Morphine Analogues AdvReac Unknown makes him Verified 04/10/21 11:36 feel bad Exam Vital Signs (past 8 hours): - 04/10/21 05:00 04/10/21 05:30 04/10/21 06:00 Pulse Rate 80 98 H 81 Respiratory Rate Blood Pressure 114/72 139/80 117/75 Pulse Oximetry 96 99 90 L 04/10/21 06:30 04/10/21 06:59 04/10/21 07:00 Pulse Rate 71 78 Respiratory Rate Blood Pressure 101/72 108/75 Pulse Oximetry 91 95 04/10/21 07:01 04/10/21 07:30 04/10/21 08:00 Pulse Rate 79 71 60 Respiratory Rate Blood Pressure 116/78 113/81 Pulse Oximetry 95 94 95 04/10/21 08:30 04/10/21 09:00 04/10/21 09:30 Pulse Rate 75 63 60 Respiratory Rate 22 Blood Pressure 122/85 122/74 122/77 Pulse Oximetry 96 95 95 04/10/21 10:00 04/10/21 10:01 04/10/21 10:30 Pulse Rate 82 77 62 Respiratory Rate 18 Blood Pressure 140/86 129/79 Pulse Oximetry 97 97 96 04/10/21 11:00 Pulse Rate 83 Respiratory Rate 16 Blood Pressure 136/82 Pulse Oximetry 97 Oxygen Delivery Method Room Air Objective Imaging CT scan - abdomen: Radiologist's impression: [address] [id number] Scan ReportSigned Patient: Silvino Mackey [facility]#: [id number]: 1965Acct:[id number]/Sex: 55 / MDate of Service: 04/10/21Loc: EDAccession Number: [id number] Procedure: CT abdomen pelvis w con Ordering Provider: Merly Stringer MD PROCEDURE: CT ABDOMEN PELVIS W CON INDICATIONS: abdominal pain TECHNIQUE: After the administration of intravenous contrast, axial sections acquired from the lung bases to the pubic symphysis. Coronal and sagittal reformats were performed. For radiation dose reduction, the following was used: automated exposure control, adjustment of mA and/or kV according to patient size. COMPARISON: None. FINDINGS: ABDOMEN: Lung bases: Dependent bilateral mild scattered atelectasis in the visualized lung bases. Heart: No significant findings. Liver: Within the left hepatic lobe, 12.1 cm partially enhancing lesion statistically represents hemangioma. This could be confirmed with ultrasound evaluation/surveillance. Small right hepatic cysts. Gallbladder: Negative Bile ducts: Normal. Pancreas: Normal. Spleen: Normal. Adrenals: Normal. Kidneys and Ureters: Normal. Stomach and duodenum: Distended stomach Bowel: Distended small bowel loops with scattered air-fluid levels. Distal small bowel loops remain decompressed. The colon is relatively decompressed. Incidentally noted scattered colonic diverticula. The rectum is unremarkable. Normal appendix. There is stool and gas within the rectal vault at this time. Other: No free fluid or air. Abdominal nodes: Normal. Aorta and IVC: Normal in size. Ventral wall: Small fat containing periumbilical hernia. PELVIS: Bladder: Normal. Inguinal region: No hernia. Pelvic nodes: Normal. Bones: Spondylytic changes and facet arthropathy. No vertebral body compression fracture. IMPRESSION: Small-bowel obstruction, including distended stomach and proximal/mid small bowel. Findings concordant with preliminary study interpretation. Additional chronic and incidental findings as above. Dictated by: Louis Segundo M.D. on 04/10/2021 at 7:51 Labs Result Diagrams: 04/10/21 03:25 04/10/21 03:25 Labs: Laboratory Results - last 24 hr 04/10/21 04/10/21 04/10/21 03:25 03:25 03:25 WBC 8.1 RBC 4.81 Hgb 15.2 Hct 43.9 MCV 91.2 MCH 31.5 MCHC 34.5 RDW 13.0 Plt Count 155 Neut % (Auto) 78.5 H Lymph % (Auto) 9.9 L [place] % (Auto) 9.2 Eos % (Auto) 1.9 L Baso % (Auto) 0.5 Neut # (Auto) 6400 Lymph # (Auto) 800 L [place] # (Auto) 800 Eos # (Auto) 200 Baso # (Auto) 0 Sodium 138 Potassium 3.4 Chloride 105 Carbon Dioxide 26 BUN 17 Creatinine 0.87 Estimated GFR > 60.0 BUN/Creatinine Ratio 19.5 Glucose 118 H Lactate 0.9 Calcium 10.4 H Magnesium 1.9 Total Bilirubin 0.6 AST 51 ALT 19 Alkaline Phosphatase 44 Troponin I < 0.012 Total Protein 6.9 Albumin 4.2 Globulin 2.7 Albumin/Globulin Ratio 1.6 Lipase 87 SARS-CoV-2 (PCR) 04/10/21 03:45 WBC RBC Hgb Hct MCV MCH MCHC RDW Plt Count Neut % (Auto) Lymph % (Auto) [place] % (Auto) Eos % (Auto) Baso % (Auto) Neut # (Auto) Lymph # (Auto) [place] # (Auto) Eos # (Auto) Baso # (Auto) Sodium Potassium Chloride Carbon Dioxide BUN Creatinine Estimated GFR BUN/Creatinine Ratio Glucose Lactate Calcium Magnesium Total Bilirubin AST ALT Alkaline Phosphatase Troponin I Total Protein Albumin Globulin Albumin/Globulin Ratio Lipase SARS-CoV-2 (PCR) Negative Assessment & Plan Assessment and plan (1) Small bowel obstruction: Status: Acute Assessment & Plan narrative: This is a 55-year-old man with no surgical history who has a small-bowel obstruction clinically and by CT scan. I explained to him that often a small-bowel obstruction is because of an adhesion/scar tissue which tethers the bowel. In his case having never had abdominal surgery, this is less likely, although congenital adhesions may also type of cause the same problem. Explained to him that we cannot see from the CT scan was causing the kink, but only evidence that there is a kink by virtue of dilated small bowel followed by decompressed small bowel and a transition point in between. Explained to him that this could be a neoplasm growing in the bowel, but without more invasive studies we would not be able to tell that for sure. Explained to him that for now we will try to open up the obstruction with Gastrografin, and if that does not work we will need to go in with surgery to open up the obstruction. I explained him the Dr. Moulton will be here tomorrow and I will be here over the weekend. At this point we will wait for than x-ray, and the effect of the Gastrografin before making any further decisions. Plan: Continue small-bowel follow-through, with x-ray pending at 2:00 p.m. Replace NG tube to suction if patient begins to vomit Okay for sips of water and ice chips for comfort Ambulate as much as tolerated IV fluids--normal saline at 150/hour (patient refuses D5 normal saline because of putative intolerance to dextrose) IV antiemetic and IV pain med as needed COVID-19 COVID-19 status: Negative Result date/Date tested (Pos, Neg/Pending): 04/10/21 Time Spent With Patient Time with patient: 25 - 35 minutes Quality VTE Deep Vein Thrombosis/Pulmonary Embolism Present on Admission: No
[2021-04-10] MEDS: PANTOPRAZOLE 40 MG VIAL IV ×2 (14:13→21:17)
[2021-04-10 14:48] LABS: Bacteria Urine None Seen; RBC Urine None Seen (0-5/HPF)
[2021-04-10 14:52] LABS: Appearance Urine UA CLEAR; Bilirubin Urine UA NEGATIVE (NEGATIVE); Color Urine UA YELLOW; Glucose Urine UA NEGATIVE (Negative); Ketones Urine UA 1+ (NEGATIVE); Leukocyte Esterase Urine UA NEGATIVE (NEGATIVE); Nitrite Urine UA NEGATIVE (Negative); Occult Blood Urine UA NEGATIVE (Negative); Protein Urine UA TRACE (Negative); Urobilinogen Urine UA 0.2 E.U./dL (0.2)
[2021-04-10 15:02] LABS: Culture Indicated Urine Cult Not Indicated; Squamous Epithelial Cell Urine 0-1 /HPF (0-5/HPF); WBC Urine 0-1/HPF (0-5/HPF)
--- NOTE | 2021-04-10 18:04 | PC.NURSE ---
checked pt at 1800 bs 103
[2021-04-11] MEDS: MAGNESIUM OXIDE 400 MG TABLET PO ×2 (00:11→08:41)
[2021-04-11 03:00] VITALS: BP 133/77; PULSE 59; RESP 18; TEMP 36.8; O2SAT 95
[2021-04-11] MEDS: CYCLOBENZAPRINE 10 MG TABLET 5 MG PO (03:16)
[2021-04-11] MEDS: SODIUM CHLORIDE 0.9% 1,000 ML 150 ML IV (04:00)
[2021-04-11 05:18] LABS: Add Manual Diff / Slide Review NO; Basophils Absolute Auto 0 /uL (0-100); Basophils Percent Auto 0.5 % (0-2); Eosinophils Absolute Auto 100 /uL (0-450); Eosinophils Percent Auto 1.8 % (2-4); Hematocrit 38.6 % (41-53); Hemoglobin 13.1 g/dL (13.5-17.5); Lymphocytes Absolute Auto 900 /uL (1100-4500); Lymphocytes Percent Auto 12.7 % (25-40); Mean Corpuscular HGB Conc 34.1 % (30-36); Mean Corpuscular Hemoglobin 31.8 PG (26-34); Mean Corpuscular Volume 93.4 fL (80-100); Monocytes Absolute Auto 700 /uL (0-900); Monocytes Percent Auto 9.7 % (3-14); Neutrophils Absolute Auto 5200 /uL (1500-7000); Neutrophils Percent Auto 75.3 % (50-75); Platelet Count 121 X10^3/uL (150-400); Red Blood Cell Count 4.13 X10^6/uL (4.5-5.9); Red Cell Distribution Width 13.4 % (11.6-14.8); White Blood Cell Count 6.9 X10^3/uL (4.5-11.0)
[2021-04-11 05:30] LABS: BUN Creatinine Ratio 13.3 (6-22); Blood Urea Nitrogen 11 mg/dL (9-20); Calcium 8.5 mg/dL (8.4-10.2); Carbon Dioxide 28 mmol/L (22-32); Chloride 107 mmol/L (98-107); Estimated Glomerular Filt Rate > 60.0 mL/min (>60); Glucose 111 mg/dL (70-100); HEMOLYSIS < 15 (0-50); Phosphorous 2.6 mg/dL (2.5-4.5); Potassium 4.7 mmol/L (3.4-5.1); Sodium 137 mmol/L (137-145)
[2021-04-11 08:03] VITALS: BP 116/71; PULSE 72; RESP 18; TEMP 36.8; O2SAT 97
[2021-04-11] MEDS: PANTOPRAZOLE 40 MG VIAL IV (08:41)
[2021-04-11] MEDS: ENOXAPARIN 40 MG/0.4 ML SYRINGE SUBCUT (08:41)
--- NOTE | 2021-04-11 09:26 | PC.NURSE ---
Patient A/O x 4, patient ambulating to restroom for void and small loose BM. Patient denies N/V, c/o moderate pain with palpation in midline r/t hernia. Abdomen soft. Patient denies pain at this time. Patient tolerating diet advancement. Lungs CTA, VSS. NS @ 150 cc/hr infusing in R AC. SCD's on. Call light in reach. Denies further needs at this time.
--- NOTE | 2021-04-11 12:07 | DI.US.S_ITS ---
PROCEDURE: US PERIPH VENOUS LOW EXTREM LT INDICATIONS: CALF PAIN R/O DVT TECHNIQUE: Real-time imaging, as well as color and pulse Doppler interrogation, were performed of the lower extremity deep veins from the inguinal ligament to the popliteal fossa. COMPARISON: None. FINDINGS: The common femoral, femoral and popliteal veins are normally compressible, and free of intraluminal thrombus. Color and pulse Doppler demonstrate normal phasic intraluminal flow. There is normal augmentation response to distal compression maneuver. IMPRESSION: No left lower extremity DVT. Dictated by: Shlomo Leon M.D. on 04/11/2021 at 14:02 Approved by: Shlomo Leon M.D. on 04/11/2021 at 14:02
--- NOTE | 2021-04-11 13:46 | CM.DANOTE ---
Discharge Planning/Care Management DCP: assessment: case received, EMR reviewed and went to room to check in with pt. He was noted to be lying in bed, appears to be sleeping deeply. Made decision not to disturb him. Spoke then with RN Minerva who said that the plan as she understands it is for pt to d/c later today if he continues to do well. Pt is a 55 year old male who lives on [facility], [place] with [place] priority board needed. He admitted yesterday to [facility] Surgeons: Dr. Siu. Today he is tolerating diet advancement, stooling, ambulating. PCP: Jay Young Payer: [facility] O/Medicaid Admission status: in review by UR RN team. No d/c needs are identified at this time for the CM/DCP team. Will follow prn tomorrow if pt is not able to go home later today. CM Discharge Assessment Start: 04/11/21 13:45 Freq: Status: Active Protocol: Document 04/11/21 13:45 ITV (Rec: 04/11/21 13:46 ITV [id number]) Discharge Planning Assessment Advance Directives? No History Provided By Medical Record Prior Living Arrangements House Independent with ADL's Yes Is patient alert and oriented? Yes Discharge Plan Home
--- NOTE | 2021-04-11 14:46 | P.DS_ITS ---
History of Present Illness History of Present Illness Date Patient Seen: 04/11/21 Time Patient Seen: 12:00 Chief complaint: Diffuse Abd Pain Narrative: The patient is a gentleman admitted with signs symptoms and imaging consistent with a bowel obstruction. He has a longstanding hernia at his umbilicus that has been tender for about 2 years any time someone pushes on it. It has not changed in any way. Discharge Providers Provider Date of admission: 04/10/21 10:38 Discharge Date: 04/11/21 Primary care physician: Jay Young ND Consults: 04/10/21 11:32 Consult to Discharge Planning Routine Comment: Discharge provider: Jasvir Moulton MD Summary Hospital Course Discharge Diagnosis: One small bowel obstruction resolved Incarcerated tender umbilical hernia chronic Left calf pain that began pre-admission. DVT ruled out in the left lower extremity. Hospital Course: Patient was admitted and given IV fluids. He underwent a small-bowel follow-through with Gastrografin which resulted in return of bowel function. He was tolerating a diet. He had no abdominal pain except for the chronic pain related to his longstanding incarcerated umbilical hernia. Of note, his admitting CT scan showed no involvement of this hernia with his obstructive process. The patient complained of left calf pain that actually began the evening before his admission. He had a ultrasound of his left venous system and showed no evidence of DVT from a popliteal to the proximal veins at the groin. He was discharged after instructing him to get a referral (which is required by his insurance) to a surgeon to have this umbilical hernia repaired. Follow-up as needed. Status at Discharge Cognitive/behavioral status at discharge: at baseline, oriented Functional status at discharge: independent ambulation Overall status at discharge: patient is back to baseline Time Spent with Patient Time spent: Less than 30 minutes Exam Vital Signs (past 8 hours): - 04/11/21 08:03 Temperature 98.3 F Pulse Rate 72 Respiratory Rate 18 Blood Pressure 116/71 Pulse Oximetry 97 Oxygen Delivery Method Room Air Oxygen Flow Rate 0 Objective Labs Result Diagrams: 04/11/21 04:50 04/11/21 04:50 Labs: Laboratory Results - last 24 hr 04/10/21 04/11/21 04/11/21 13:20 04:50 04:50 WBC 6.9 RBC 4.13 L Hgb 13.1 L Hct 38.6 L MCV 93.4 MCH 31.8 MCHC 34.1 RDW 13.4 Plt Count 121 L Neut % (Auto) 75.3 H Lymph % (Auto) 12.7 L [place] % (Auto) 9.7 Eos % (Auto) 1.8 L Baso % (Auto) 0.5 Neut # (Auto) 5200 Lymph # (Auto) 900 L [place] # (Auto) 700 Eos # (Auto) 100 Baso # (Auto) 0 Sodium 137 Potassium 4.7 D Chloride 107 Carbon Dioxide 28 BUN 11 Creatinine 0.83 Estimated GFR > 60.0 BUN/Creatinine Ratio 13.3 Glucose 111 H Calcium 8.5 Phosphorus 2.6 Magnesium 2.0 Urine Color Yellow Urine Appearance Clear Urine pH 8.0 Ur Specific [place] 1.010 Urine Protein Trace H Urine Glucose (UA) Negative Urine Ketones 1+ H Urine Occult Blood Negative Urine Nitrate Negative Urine Bilirubin Negative Urine Urobilinogen 0.2 Ur Leukocyte Esterase Negative Urine RBC None seen Urine WBC 0-1/hpf Ur Squamous Epith Cells 0-1 /hpf Urine Bacteria None seen Ur Culture Indicated? Cult not indicated PFSH Social History Smoking Status: Never smoker Discharge Plan Discharge Plan Patient Disposition: Home Provider Discharge Comment: Your problem for which your admitted to the hospital seems to have resolved. You did not have any blood clots in your lower extr emity. You should avoid eating dense vegetables in large amounts or things that are poorly digested like Kale. These can cause blockages of the intestine. Please contact your primary care provider and get a referral to a surgeon to repair your umbilical hernia. It does not appear to have been the source of this blockage but the degree of symptoms you have could result in a severe problem in the future. Return to the emergency room if your symptoms recur. Discharge orders & Medications Prescriptions: No Action No Known Home Medications RF: 0 Follow up/Referrals: Jay Young ARNP [Primary Care Provider] - Diet/Activity/Treatments Diet: Diet as Tolerated Activity: Activity as tolerated Skin/Wound/Dressing Care Report to your healthcare provider any signs of infection, such as:: increased pain Discharge Data Primary Care Provider: Jay Young Attending Provider: Keisha Siu VTE Deep Vein Thrombosis/Pulmonary Embolism Present on Admission: No
--- NOTE | 2021-04-11 16:52 | PC.NURSE ---
Discharge Note- Patient discharged home as ordered. Discharge instructiobns and education reviewed with patient and signed. IV removed on dayshi. Patient dressed self and packed up all personal belongings. Patient taken by wheelchair with all personal belongings and to private car at 1610.
== END 2021-04-11 16:10 | disposition home or self-care (01) ==
LOC: ED 07:23 → AC 10:38
PROVIDERS: Emergency Medicine; Admitting Provider Surgery; Emergency Provider Emergency Medicine; Family Provider Registered Nurse; PCP Registered Nurse; Referring Provider Emergency Medicine; Visit Provider Surgery
DX: K56.609 Unspecified intestinal obstruction, unspecified as to partial versus complete obstruction (principal); R10.9 Unspecified abdominal pain; K42.9 Umbilical hernia without obstruction or gangrene; M79.662 Pain in left lower leg; Z20.822 Contact with and (suspected) exposure to COVID-19
CPT/HCPCS: 36415; 71045; 74018; 74177; 80048; 80053; 81001; 82962; 83605; 83690; 83735; 84100; 84484; 85025; 87040; 87635; 93971; 96361; 96372; 96374; 96375; 96376; 99217; 99219; 99284; C9803; G0378; C9113; J1170; J1650; J2405; Q9967

== ENCOUNTER → 2021-05-27 10:12 | Outpatient (CLI) | payer OTHER, MEDICAID, SELFPAY ==
[2021-04-10 11:33] VITALS: BMI 25.0
[2021-05-27 11:00] LABS: COVID19 -Nasal RAPID Negative (Negative)
== END ==
PROVIDERS: Family Provider Registered Nurse; PCP Registered Nurse; Referring Provider Specialist; Visit Provider Specialist
DX: Z20.822 Contact with and (suspected) exposure to COVID-19 (principal)
CPT/HCPCS: 87635; C9803

== ENCOUNTER 2021-05-28 11:31 | Day surgery (SDC) | payer OTHER, MEDICAID, SELFPAY ==
[2021-04-10 11:33] VITALS: BMI 25.0
[2021-05-19 08:29] VITALS: BMI 39.7
[2021-05-28] VITALS (12 sets, daily range): BP systolic 102–132; BP diastolic 61–85; PULSE 64–75; RESP 12–18; TEMP 36.3–37.1; O2SAT 96–100; BMI 25.4
[2021-05-28] MEDS: LACTATED RINGERS 1,000 ML 42 ML IV (12:20)
--- NOTE | 2021-05-28 12:32 | PM.PREOP ---
Pre-operative Note COVID-19 COVID-19 status: Negative Result date/Date tested (Pos, Neg/Pending): 05/27/21 Interval Note History & Physical reviewed/Exam performed by Physician: Yes Changes to H&P: No
[2021-05-28] MEDS: CEFAZOLIN 1 GM VIAL 2 GM IV (12:50)
--- NOTE | 2021-05-28 13:08 | SUR.OPER ---
Supine on padded OR bed, head on pillow, arms secured on padded arm boards at <90 degrees abduction, legs uncrossed, safety belt at thigh, tape over blanket over lower legs.
[2021-05-28] MEDS: BUPIVACAINE 0.25% (PF) VIAL 30 ML INJ (13:17)
--- NOTE | 2021-05-28 13:54 | PM.OP.1 ---
Operative Date/Time/Diagnoses Date of procedure: 05/28/21 Time of procedure: 13:40 Pre-op diagnosis: Incarcerated ventral hernia. Post-op diagnosis: same Procedure & Clinicians Procedure: Repair of hernia. Same procedure as scheduled: Yes Indications: Patient with an incarcerated tender hernia above the umbilicus. It does not appear to be associated with the umbilicus. Surgeon: Jasvir Moulton Click Yes if Unassisted: Yes Anesthesia Type: General Operative Notes Findings: Tiny defect above the umbilicus. Contained fat. Closure Type: primary Specimen(s): none sent Prosthetic devices, grafts, tissues, transplants, or devices: None Estimated Blood Loss (mL): 5 Blood products transfused: none Procedure in detail: The patient was placed supine on the operating room table and underwent general LMA anesthesia. They were prepped and draped in the usual fashion. A linear incision was made above the umbilicus and carried down to the level of the fascia. Hernia sac was entered and the fat removed as it could not be reduced. The fascia overlying was cleared of tissue. The opening was approximately 0.4 cm. The defect was too small to place mesh under it. I closed the defect with a single 0 Ethibond suture.. The subcu was closed with interrupted 3 0 Vicryl and the skin was closed with interrupted 4-0 Vicryl subcuticular stitches and Steri-Strip. Dressing was applied and the patient was awakened and taken to the recovery area in good condition. The patient appeared to tolerate the procedure well. Local anesthetic was infiltrated both before the incision was made and at the completion of the procedure. Complications: none Post-operative Condition: stable Disposition: PACU
--- NOTE | 2021-05-28 14:02 | SUR.PHASEI ---
Received to PACU after general anesthesia. Airway patent, self maintained. Report received from Dr Quintero and [employer].
[2021-05-28] MEDS: HYDROMORPHONE 2 MG INJ IV ×4 (14:06→14:35)
== END 2021-05-28 15:55 | disposition home or self-care (01) ==
PROVIDERS: Family Provider Registered Nurse; PCP Registered Nurse; Referring Provider Specialist; Visit Provider Specialist
PROC: (CPT 49561; principal; 2021-05-28 11:45)
DX: K43.6 Other and unspecified ventral hernia with obstruction, without gangrene (principal)
CPT/HCPCS: 49561; J0690; J1100; J1170; J2405; J2704; J3010

== ENCOUNTER 2023-03-05 17:55 | Emergency (ER) | payer OTHER, MEDICAID, SELFPAY ==
[2021-04-10 11:33] VITALS: BMI 25.0
[2023-03-05 17:59] VITALS: BP 133/76; PULSE 76; RESP 16; TEMP 37.1; O2SAT 97; BMI 21.7
[2023-03-05 18:51] LABS: Add Manual Diff / Slide Review NO; Basophils Absolute Auto 0 /uL (0-100); Basophils Percent Auto 0.7 % (0-2); Eosinophils Absolute Auto 200 /uL (0-450); Eosinophils Percent Auto 3.4 % (2-4); Hematocrit 41.6 % (41-53); Hemoglobin 14.6 g/dL (13.5-17.5); Lymphocytes Absolute Auto 700 /uL (1100-4500); Lymphocytes Percent Auto 13.8 % (25-40); Mean Corpuscular HGB Conc 34.9 % (30-36); Mean Corpuscular Hemoglobin 32.6 PG (26-34); Mean Corpuscular Volume 93.3 fL (80-100); Monocytes Absolute Auto 700 /uL (0-900); Monocytes Percent Auto 13.4 % (3-14); Neutrophils Absolute Auto 3500 /uL (1500-7000); Neutrophils Percent Auto 68.7 % (50-75); Platelet Count 138 X10^3/uL (150-400); Red Blood Cell Count 4.46 X10^6/uL (4.5-5.9); White Blood Cell Count 5.1 X10^3/uL (4.5-11.0)
[2023-03-05 19:01] LABS: Alanine Aminotransferase 15 IU/L (<50); Albumin 4.1 g/dL (3.5-5.0); Albumin Globulin Ratio 1.5 (1.0-2.8); Alkaline Phosphatase 52 U/L (38-126); Aspartate Aminotransferase 35 IU/L (17-59); Bilirubin Total 0.7 mg/dL (0.2-1.3); Blood Urea Nitrogen 16 mg/dL (9-20); Calcium 8.8 mg/dL (8.4-10.2); Carbon Dioxide 30 mmol/L (22-32); Chloride 98 mmol/L (98-107); Estimated Glomerular Filt Rate > 60 mL/min (>60); Globulin 2.8 g/dL (1.7-4.1); Glucose 89 mg/dL (70-100); HEMOLYSIS 21 (0-50); Lipase 78 U/L (23-300); Potassium 3.9 mmol/L (3.4-5.1); Sodium 133 mmol/L (137-145); Total Protein 6.9 g/dL (6.3-8.2)
--- NOTE | 2023-03-05 19:37 | DI.CT.S_ITS ---
PROCEDURE: CT ABDOMEN PELVIS W CON INDICATIONS: abd pain, h/o hernia surgery TECHNIQUE: After the administration of oral and IV contrast, axial sections were acquired from the lung bases to the pubic symphysis. Coronal and sagittal reformats were performed. For radiation dose reduction, the following was used: automated exposure control, adjustment of mA and/or kV according to patient size. COMPARISON: [facility], CT, CT ABDOMEN PELVIS W CON, 04/10/2021, 3:39. FINDINGS: Image quality: Excellent. Lung bases: Unremarkable. Heart: No significant findings. ABDOMEN: Liver: A simple right liver cyst is again seen near the liver dome. A subcentimeter right inferior liver cyst is also seen. There is a liver hemangioma again seen within the left lobe of the liver with peripheral puddling of contrast, as on series 2, image 27. The liver is normal in size and demonstrates no suspicious lesions. Gallbladder: Unremarkable. Biliary ducts: Unremarkable. Pancreas: Unremarkable. Spleen: Unremarkable. Adrenal Glands: Unremarkable. Kidneys and Ureters: Unremarkable. Stomach and Bowel: Stomach, small bowel loops, and colon are unremarkable. A normal appendix is seen. Peritoneum: No abnormal intraperitoneal fluid. No free air. Ventral Wall: No hernia. Abdominal Nodes: No retroperitoneal or mesenteric adenopathy by size criteria. Vessels: Aorta and inferior vena cava are normal in size. PELVIS: Pelvic Organs: Unremarkable. Bladder: Unremarkable. Pelvic Nodes: No enlarged lymph nodes. Miscellaneous: No inguinal hernias are seen. Bones: Unremarkable. IMPRESSION: Unremarkable study. No recurrent hernia can be seen. No dilated loops of small bowel. Additional findings: Simple right liver cysts Left liver hemangioma Dictated by: Ousmane Sánchez M.D. on 03/05/2023 at 19:13 Approved by: Ousmane Sánchez M.D. on 03/05/2023 at 19:15
[2023-03-05 19:53] LABS: Lactate (Lactic Acid) 0.7 mmol/L (0.7-2.1)
[2023-03-05 20:47] VITALS: O2SAT 99
[2023-03-05 20:48] VITALS: BP 104/69; PULSE 78; RESP 14
--- NOTE | 2023-03-05 22:16 | ED.ABDPAIN ---
HPI - Abdominal Pain General Chief Complaint: Abdominal Pain Stated Complaint: Hx intestinal blockage, ABD pain Time Seen by Provider: 03/05/23 21:58 History of Present Illness HPI narrative: Patient is a 57-year-old male history of small-bowel obstruction with umbilical hernia repair presents today with few days of abdominal pain. He says it comes and goes gets to be quite intense. He denies any fever chills nausea or vomiting. He says he is not passing as much gas but he is having regular bowel movements. He reports that the pain has subsided now. He reports that pain begins almost immediately after he eats food. He is tolerating fluids. He says since his surgery he is changed his diet. He remains active. He reports that over the last couple of days like he has had decrease in appetite but still eating food. Related Data Previous Rx's Medication Instructions Recorded hydromorphone 2 mg tablet 2 mg PO Q6H PRN painful procedure 05/28/21 (Dilaudid) #10 tabs Allergies Allergy/AdvReac Type Severity Reaction Status Date / Time acetaminophen [From Percocet] Allergy Mild ITCHING Verified 06/12/21 11:59 oxycodone [From Percocet] Allergy Mild ITCHING Verified 06/12/21 11:59 Opioids - Morphine Analogues AdvReac Unknown makes him Verified 06/12/21 11:59 feel bad Review of Systems Review of Systems ROS Unobtainable: All systems reviewed & are unremarkable except as noted in HPI and below Patient History Medical History Ventral hernia Surgical History H/O knee surgery (2011) Social History household members: spouse Smoking Status: Former smoker alcohol intake: current Smoking Status: Former smoker alcohol intake frequency: 0-2 drinks per day Substance Use Type: does not use Exam Initial Vital Signs Initial Vital Signs: Vital Signs Temperature 98.7 F 03/05/23 17:59 Pulse Rate 76 03/05/23 17:59 Respiratory Rate 16 03/05/23 17:59 Blood Pressure 133/76 03/05/23 17:59 Pulse Oximetry 97 03/05/23 17:59 Oxygen Delivery Method Room Air 03/05/23 17:59 GENERAL: Alert well-appearing 57-year-old male HEENT: Head atraumatic,EOMI, pupils reactive, face symmetric, moist mucous membranes CARDIOVASCULAR: Regular rate and rhythm without murmurs, rubs or gallops. RESPIRATORY: Breath sounds equal bilaterally, no wheezes rales or rhonchi. ABDOMEN: Soft, no distention nontender soft EXTREMITIES: Normal range of motion, no clubbing or edema. Neurovascularly intact NEUROLOGICAL: Alert and oriented x4. SKIN: Warm, dry, no laceration, no petechiae, no rashes or lesions. Course Orders Ordered: ED Orders 03/05/23 18:10 EKG-12 Lead Stat 03/05/23 18:20 Complete Blood Count AUTO DIFF Stat Comprehensive Metabolic Panel Stat Lactate (Lactic Acid) Stat Lipase Stat 03/05/23 19:37 CT abdomen pelvis w con Stat Vital Signs Vital signs: Vital Signs - 8 hr 03/05/23 22:31 Temperature 97.3 F L Pulse Rate 58 L Respiratory Rate 16 Blood Pressure 122/70 Pulse Oximetry 99 Oxygen Delivery Method Room Air MDM - Abdominal Pain Lab Data 03/05/23 18:20 03/05/23 18:20 Labs: Lab Results 03/05/23 03/05/23 03/05/23 Range/Units 18:20 18:20 18:20 WBC 5.1 (4.5-11.0) X10^3/uL RBC 4.46 L (4.5-5.9) X10^6/uL Hgb 14.6 (13.5-17.5) g/dL Hct 41.6 (41-53) % MCV 93.3 (80-100) fL MCH 32.6 (26-34) PG MCHC 34.9 (30-36) % RDW 13.0 (11.6-14.8) % Plt Count 138 L (150-400) X10^3/uL Neut % (Auto) 68.7 (50-75) % Lymph % (Auto) 13.8 L (25-40) % [place] % (Auto) 13.4 (3-14) % Eos % (Auto) 3.4 (2-4) % Baso % (Auto) 0.7 (0-2) % Neut # (Auto) 3500 (7345-7063) /uL Lymph # (Auto) 700 L (5814-4851) /uL [place]chran # (Auto) 700 (0-900) /uL Eos # (Auto) 200 (0-450) /uL Baso # (Auto) 0 (0-100) /uL Sodium 133 L (137-145) mmol/L Potassium 3.9 (3.4-5.1) mmol/L Chloride 98 (98-107) mmol/L Carbon Dioxide 30 (22-32) mmol/L BUN 16 (9-20) mg/dL Creatinine 0.84 (0.66-1.25) mg/dL Estimated GFR > 60 (>60) mL/min BUN/Creatinine Ratio 19.0 (6-22) Glucose 89 (70-100) mg/dL Lactate 0.7 (0.7-2.1) mmol/L Calcium 8.8 (8.4-10.2) mg/dL Total Bilirubin 0.7 (0.2-1.3) mg/dL AST 35 (17-59) IU/L ALT 15 (<50) IU/L Alkaline Phosphatase 52 (38-126) U/L Total Protein 6.9 (6.3-8.2) g/dL Albumin 4.1 (3.5-5.0) g/dL Globulin 2.8 (1.7-4.1) g/dL Albumin/Globulin Ratio 1.5 (1.0-2.8) Lipase 78 (23-300) U/L Point of care testing: Urine Dip Bedside Urine Glucose Negative Bedside Urine Bilirubin - Negative Bedside Urine Ketone - Negative Urine Specific [place] 1.01 Bedside Urine Occult Blood - Negative Bedside Urine pH 6 Bedside Urine Protein - Negative Bedside Urine Urobilinogen - Negative Bedside Urine Nitrite - Negative Bedside Urine Leukocytes - Negative Esterase Imaging Data CT scan - abdomen/pelvis: Radiologist's Impression: PROCEDURE:? CT ABDOMEN PELVIS W CON ? INDICATIONS:? abd pain, h/o hernia surgery ? TECHNIQUE:? After the administration of oral and IV contrast, axial sections were acquired from the lung bases to the pubic symphysis.? Coronal and sagittal reformats were performed.? For radiation dose reduction, the following was used:? automated exposure control, adjustment of mA and/or kV according to patient size. ? COMPARISON:? [facility], CT, CT ABDOMEN PELVIS W CON, 04/10/2021, 3:39. ? FINDINGS:? Image quality:? Excellent.? ? Lung bases:? Unremarkable.? ? Heart:? No significant findings. ? ? ABDOMEN: Liver:? A simple right liver cyst is again seen near the liver dome.? A subcentimeter right inferior liver cyst is also seen.? There is a liver hemangioma again seen within the left lobe of the liver with peripheral puddling of contrast, as on series 2, image 27. The liver is normal in size and demonstrates no suspicious lesions. Gallbladder:? Unremarkable.? ? Biliary ducts:? Unremarkable.? ? Pancreas:? Unremarkable.? ? Spleen:? Unremarkable.? ? Adrenal Glands:? Unremarkable.? ? Kidneys and Ureters:? Unremarkable.? ? ? Stomach and Bowel:? Stomach, small bowel loops, and colon are unremarkable.? A normal appendix is seen. Peritoneum:? No abnormal intraperitoneal fluid.? No free air.? ? Ventral Wall: ? No hernia.? Abdominal Nodes:? No retroperitoneal or mesenteric adenopathy by size criteria.? Vessels:? Aorta and inferior vena cava are normal in size.? ? PELVIS: Pelvic Organs:? Unremarkable.? ? Bladder:? Unremarkable.? ? Pelvic Nodes: No enlarged lymph nodes.? Miscellaneous: No inguinal hernias are seen. ? ? ? Bones:? Unremarkable.? IMPRESSION:? ? Unremarkable study. ? No recurrent hernia can be seen. ? No dilated loops of small bowel. ? Additional findings:? Simple right liver cysts Left liver hemangioma ? Dictated by: Ousmane Sánchez M.D. on 03/05/2023 at 19:13 ? ? Approved by: Ousmane Sánchez M.D. on 03/05/2023 at 19:15 ? [facility] Narrative Medical decision making narrative: Patient 57-year-old male history of small-bowel obstruction with an umbilical hernia repair. Presents today with intermittent abdominal pain. He is not having any nausea or vomiting no change in bowel habits. Abdomen is soft and nondistended. Blood work today is overall reassuring without electrolyte abnormality SEVERIANO or leukocytosis. Lactic acid is also negative no evidence of ischemia. Abdomen on exam is not consistent with ischemic bowel. CT does not show any evidence of obstruction. At this time recommend outpatient follow-up may attempt clear liquid diet. Discharge Plan Departure Patient Disposition: Home Clinical Impression: Abdominal pain Instructions: DI for Abdominal Pain-Adult Activity Restrictions/Additional Instructions: *You have been diagnosed with abdominal pain *What to do: At this time CT blood work overall reassuring. You may try a clear liquid diet if needed. *Continue to take medications as directed *Follow up with your primary care provider in 2-3 days or call [phone] *Return to ER if you should have increasing abdominal pain nausea vomiting fever distention or any new, worsening or concerning symptoms Prescriptions: No Action hydromorphone [Dilaudid] 2 mg tablet 2 mg PO Q6H PRN (Reason: painful procedure) Qty: 10 0RF Referrals: Jay Young ARNP [Primary Care Provider] - Stand Alone Forms: Patient Portal/API
[2023-03-05 22:31] VITALS: BP 122/70; PULSE 58; RESP 16; TEMP 36.3; O2SAT 99
== END 2023-03-05 22:32 | disposition home or self-care (01) ==
PROVIDERS: Emergency Medicine; Emergency Provider Emergency Medicine; Family Provider Registered Nurse; PCP Registered Nurse
DX: R10.9 Unspecified abdominal pain (principal)
CPT/HCPCS: 36415; 74177; 80053; 81003; 83605; 83690; 85025; 99284; Q9967